=== PATIENT | female | born 1965 | race Caucasian/White ===

== ENCOUNTER 2016-11-18 11:06 | Emergency (ER) | payer OTHER ==
[~2016-11-18 11:06] MED LIST: LOP25 PO; PRIN20 PO; PROZAC40 MG PO; VIST50 PO
[2016-11-18 12:08] LABS: INFLUENZA A SCREEN NEGATIVE (NEGATIVE); INFLUENZA B SCREEN POSITIVE (NEGATIVE)
[2016-12-28] MEDS ORDERED: RISP1 PO (15:57)
[2016-12-28] MEDS ORDERED: LIPITOR40 PO (15:57)
== END 2016-11-18 13:05 | disposition home or self-care (01) ==
LOC: ER 11:06
PROVIDERS: Nurse Practitioner
DX: J10.1 Influenza due to other identified influenza virus with other respiratory manifestations (principal); Z88.8 Allergy status to other drugs, medicaments and biological substances; Z79.899 Other long term (current) drug therapy
CPT/HCPCS: 71020; 87804; 96372; 99284; A9270-GY